=== PATIENT | female | born 1940 | race Hispanic/Latino ===

== ENCOUNTER → 2017-07-07 | Outpatient (CLI) | payer OTHER, MEDICARE | END | disposition home or self-care (01) | LOC: RAH 12:11 | PROVIDERS: ATTEND Internal Medicine Cardiovascular Disease | DX: G44.59 Other complicated headache syndrome (principal) | CPT/HCPCS: 70450 ==

== ENCOUNTER → 2021-04-08 | Outpatient (CLI) | payer OTHER, MEDICARE | END | disposition home or self-care (01) | LOC: SHCH 14:09 | PROVIDERS: ATTEND Internal Medicine Cardiovascular Disease | DX: I11.9 Hypertensive heart disease without heart failure (principal); E78.5 Hyperlipidemia, unspecified | CPT/HCPCS: 93306 ==

== ENCOUNTER → 2022-01-09 | Outpatient (CLI) | payer OTHER, MEDICARE | END | disposition home or self-care (01) | LOC: RAH 07:21 | PROVIDERS: ATTEND Internal Medicine Gastroenterology | DX: R14.0 Abdominal distension (gaseous) (principal) | CPT/HCPCS: 78264; A9541 ==

== ENCOUNTER 2023-07-21 09:34 | Day surgery (SDC) | payer OTHER, MEDICARE ==
[2023-07-16 11:44] LABS: BASOPHILS # (AUTO) 0.03 K/uL (0.00-0.20); BASOPHILS % (AUTO) 0.5 % (0.0-5.0); EOSINOPHILS # (AUTO) 0.12 K/uL (0.00-0.70); EOSINOPHILS % (AUTO) 1.9 % (0.0-8.0); HEMATOCRIT 34.2 % (36-48); IMMATURE GRANULOCYTE ABSOLUTE 0.02 K/uL (0-1); LYMPHOCYTES # (AUTO) 2.1 K/uL (1.0-4.8); LYMPHOCYTES % (AUTO) 33.8 % (21.0-51.0); MEAN CORPUSCULAR HEMOGLOBIN 28.5 pg (27.0-33.0); MEAN CORPUSCULAR HGB CONC 32.5 g/dL (32.0-36.0); MEAN CORPUSCULAR VOLUME 87.9 fL (79-99); MONOCYTES # (AUTO) 0.5 K/uL (0.1-1.0); MONOCYTES % (AUTO) 7.7 % (3.0-13.0); NEUTROPHILS # (AUTO) 3.5 K/uL (1.8-7.7); NEUTROPHILS % (AUTO) 55.8 % (40.0-77.0); PLATELET COUNT (AUTO) 242 K/uL (130-400); RED BLOOD CELL COUNT(AUTO) 3.89 MIL/uL (4.00-5.50); RED CELL DISTRIBUTION WIDTH 13.4 % (11.0-15.5); WHITE BLOOD COUNT (AUTO) 6.2 K/uL (4.8-10.8)
[2023-07-16 11:51] VITALS: BP 178/68; PULSE 50; RESP 16
[2023-07-16 11:52] LABS: CREATININE 0.7 mg/dL (0.5-1.0); POTASSIUM 3.9 mmol/L (3.5-5.1)
[2023-07-16 11:56] LABS: INR <= 0.93 (0.85-1.15); PROTHROMBIN TIME 10.9 SEC (9.6-11.6)
[2023-07-16 11:57] LABS: PARTIAL THROMBOPLASTIN TIME 29.6 SEC (26.3-35.5)
[~2023-07-21] VITALS: Ht 142.2 cm; Wt 51.8 kg
[2023-07-21] VITALS (18 sets, daily range): BP systolic 130–171; BP diastolic 49–72; PULSE 58–74; RESP 14–19
[~2023-07-21 09:34] MED LIST: AMLO-257 PO; LEVO75CA5 PO; LOSA100T59 PO; ROSU5TAB12 PO
[2023-07-21] MEDS ORDERED: LIDOCAINE PF 100MG/5ML (2%) SYRINGE 5ML ONE (11:24)
[2023-07-21] MEDS ORDERED: MIDAZOLAM HCL 1 MG/ML 2ML VIAL ONE (11:25)
[2023-07-21] MEDS ORDERED: PROPOFOL 10 MG/ML 20ML VIAL IV ONE (11:25)
[2023-07-21] MEDS ORDERED: ROCURONIUM BROMIDE 10MG/1ML 5ML VL ONE (11:25)
[2023-07-21] MEDS ORDERED: ONDANSETRON 4MG INJ ONE (11:26)
[2023-07-21] MEDS ORDERED: ROPIVACAINE 0.5% 5MG/ML 30ML ONE (11:26)
[2023-07-21] MEDS ORDERED: FENTANYL CITRATE PF 50 MCG/1 ML 2ML VIAL ONE (11:26)
[2023-07-21] MEDS: LACTATED RINGERS 1000ML 1,000 ML IV ONE (11:45)
[2023-07-21] MEDS: CEFAZOLIN SODIUM 2 GM VIAL ONE (11:45)
[2023-07-21] MEDS ORDERED: NEOSTIGMINE METHYLSULFATE 1MG/ML IV ONE (12:09)
[2023-07-21] MEDS ORDERED: GLYCOPYRROLATE 0.2 MG/ML 5 ML VIAL ONE (12:09)
[2023-07-21] MEDS ORDERED: DOCU-116 PO (12:59)
[2023-07-21] MEDS ORDERED: TRAM50TA4 PO (12:59)
[2023-07-21] MEDS ORDERED: SUGAMMADEX SODIUM 200 MG/2 ML VIAL IV ONE (13:06)
[2023-07-21] MEDS: ONDANSETRON 4MG INJ ONE (13:48)
[2023-07-21] MEDS: MEPERIDINE-PF 25 MG/ML SYG ONE (13:49)
[2023-07-21] MEDS: HYDRALAZINE 20MG/ML VIAL ONE (14:04)
== END 2023-07-21 16:00 | disposition home or self-care (01) ==
LOC: DAHIP 09:34 → DAH 09:34 → UNDOADMOB 09:34 → INTOOBSV 09:34 → DAH 16:00
PROVIDERS: ATTEND Surgery
DX: K43.2 Incisional hernia without obstruction or gangrene (principal); I10 Essential (primary) hypertension; E03.9 Hypothyroidism, unspecified; E78.5 Hyperlipidemia, unspecified; D64.9 Anemia, unspecified; Z82.49 Family history of ischemic heart disease and other diseases of the circulatory system; Z79.899 Other long term (current) drug therapy; Z79.890 Hormone replacement therapy; Z90.49 Acquired absence of other specified parts of digestive tract; Z98.890 Other specified postprocedural states
CPT/HCPCS: 80048; 85025; 85610; 85730; 36415; 93005; 49613; A6260; A4663; J7120 ×2; J3010; J3490 ×2; J2001; J0360; J2250; J2704; J2405 ×2; J2710; J2175; J2795; J0690; C1769; A4649; A4930; A4215; A4223; A4222; A4221; J7030; A4600

== ENCOUNTER 2023-07-29 01:41 | Emergency (ER) | payer OTHER, MEDICARE ==
[~2023-07-29] VITALS: Ht 144.8 cm; Wt 51.3 kg
[~2023-07-29 01:41] MED LIST changes: +DOCU-116 PO; +TRAM50TA4 PO
[2023-07-29] MEDS: TRIAMCINOLONE ACETONIDE 40 MG/ML 1ML VIAL IM ONE (02:25)
[2023-07-29] MEDS: KETOROLAC 30MG VIAL (30MG/ML) IM ONE (02:25)
[2023-07-29 02:42] VITALS: BP 106/52; PULSE 99; RESP 18; O2SAT 98
[2023-07-29] MEDS ORDERED: DICL20GE TP (03:13)
== END 2023-07-29 03:26 | disposition home or self-care (01) ==
LOC: EDH 01:41
DX: G89.29 Other chronic pain (principal); M25.521 Pain in right elbow; I10 Essential (primary) hypertension; E03.9 Hypothyroidism, unspecified; Z90.49 Acquired absence of other specified parts of digestive tract; Z98.890 Other specified postprocedural states
CPT/HCPCS: 99285; 73080; 96372 ×2; J3301; J1885